=== PATIENT | female | born 1935 | race Caucasian/White ===

== ENCOUNTER 2021-01-30 15:31 | Inpatient (IN) | payer MEDICARE, BC ==
[~2021-01-30] VITALS: Ht 157.5 cm; Wt 83.2 kg
[~2021-01-30 15:31] MED LIST: AMBIEN 5 MG TABL5 M1; ATORVASTATIN CA40 MG; BAYER CHEWABLE81 MG; CALAN80 MG; COQ-10100 MG; COZAAR 50 MG TA50 M2; D-20002000 UNIT; FISH OIL 1,001000 M2; GLUCOTROL5 MG; ISOSORBIDE MONO60 M1; JANUVIA100 MG; LOPRESSOR25; PLAVIX 75 MG TA75 M1; SYNTHROID100 MCG; TRAMADOL 50 MG50 MG; ZANTAC 150MG T150 MG
[2021-01-30 15:41] VITALS: BP 165/79
[2021-01-30 15:46] LABS: URINE BILIRUBIN NEGATIVE (Negative); URINE BLOOD NEGATIVE (Negative); URINE CLARITY CLEAR; URINE COLOR YELLOW; URINE GLUCOSE-RANDOM NEGATIVE (Negative); URINE KETONES NEGATIVE (Negative); URINE LEUKOCYTES NEGATIVE (Negative); URINE NITRITE NEGATIVE (Negative); URINE PROTEIN NEGATIVE (Negative); URINE UROBILINOGEN 0.2 E.U./dl (0.2-1.0)
[2021-01-30] MEDS ORDERED: COZAAR 25 MG TA25 M1 PO (15:55)
[2021-01-30] MEDS ORDERED: HYDROCHLOROTH12.5 M2 PO (15:56)
[2021-01-30] MEDS ORDERED: TRESIBA FL100 UNIT/1 SUBQ (15:59)
[2021-01-30] MEDS ORDERED: PROTONIX40 M2 PO ×2 (16:00→21:51)
[2021-01-30] MEDS ORDERED: ELIQUIS2.5 MG PO (16:00)
[2021-01-30] MEDS ORDERED: NITROSTAT0.4 M1 SUBLING (16:01)
[2021-01-30] MEDS ORDERED: MAGNESIUM250 M1 PO (16:02)
[2021-01-30] MEDS ORDERED: PROBIOTIC1 EAC7 PO (16:02)
[2021-01-30 16:17] LABS: ABSOLUTE EOSINOPHILS 0.1 thou/uL (0.0-0.7); ABSOLUTE LYMPHOCYTES 0.7 thou/uL (0.8-5.3); ABSOLUTE MONOCYTES 0.4 thou/uL (0.0-1.2); ABSOLUTE NEUTROPHILS 4.2 thou/uL (1.6-8.1); BASOPHILS 0.3 %; EOSINOPHILS 1.1 %; HEMOGLOBIN 11.3 gm/dL (12.0-15.0); LYMPHOCYTES 13.3 %; MCH 32.3 pg (26.0-34.0); MCHC 33.3 g/dL (28.0-37.0); MONOCYTES 8.1 %; MPV 7.9 fl. (7.2-11.1); NUCLEATED RBCS 0 /100WBC; PLATELET COUNT* 130 thou/uL (150-400); POLYS 77.2 %; RDW-CV 13.7 % (10.5-14.5); WBC 5.5 thou/uL (4.0-11.0)
[2021-01-30 16:24] LABS: CALCIUM 9.2 mg/dL (8.5-10.1); CREATININE 1.5 mg/dL (0.6-1.3); POTASSIUM 4.1 mmol/L (3.5-5.1)
[2021-01-30 16:27] LABS: APTT 25.4 Seconds (25.0-31.3); INR 1.1; PROTIME 11.7 Seconds (9.20-11.50)
[2021-01-30 16:35] LABS: ALBUMIN 3.6 g/dL (3.4-5.0); TOTAL BILIRUBIN 0.6 mg/dL (<0.1-1.0); TOTAL PROTEIN 7.3 g/dL (6.4-8.2)
[2021-01-30 20:36] VITALS: BP 122/55
[2021-01-30 20:55] VITALS: BP 169/70
[2021-01-30] MEDS ORDERED: D3-501250 MCG PO (21:33)
[2021-01-30] MEDS ORDERED: IMDUR 60 MG TAB60 M1 PO (21:40)
[2021-01-30] MEDS ORDERED: SYNTHROID88 MC1 PO (21:42)
[2021-01-30] MEDS ORDERED: LOSARTAN POTAS100 MG PO (21:44)
[2021-01-30] MEDS ORDERED: KLOR-CON 10 ER10 MEQ PO (21:46)
[2021-01-30] MEDS ORDERED: HYDRALAZINE 2525 MG PO (21:47)
[2021-01-30] MEDS ORDERED: HYDRALAZINE 2525 M1 PO (21:48)
[2021-01-30] MEDS ORDERED: AMBIEN 10 MG TA10 MG PO (21:49)
[2021-01-30] MEDS ORDERED: CALCIUM CARBON500 MG PO (21:54)
[2021-01-30] MEDS ORDERED: ADVIL200 M3 PO (21:57)
[2021-01-31] VITALS (7 sets, daily range): BP systolic 132–187; BP diastolic 59–74
[2021-01-31 11:06] LABS: CALCIUM 9.5 mg/dL (8.5-10.1); CREATININE 1.5 mg/dL (0.6-1.3); MAGNESIUM 1.6 mg/dL (1.8-2.4); POTASSIUM 4.3 mmol/L (3.5-5.1)
[2021-02-01 04:27] VITALS: BP 133/53
[2021-02-01 07:47] LABS: CALCIUM 8.7 mg/dL (8.5-10.1); CREATININE 1.4 mg/dL (0.6-1.3); MAGNESIUM 1.7 mg/dL (1.8-2.4); POTASSIUM 4.3 mmol/L (3.5-5.1)
[2021-02-01 12:10] VITALS: BP 146/53
[2021-02-01 16:15] VITALS: BP 140/60
[2021-02-01 20:00] VITALS: BP 174/82
[2021-02-02 00:11] VITALS: BP 139/61
[2021-02-02 04:40] LABS: CALCIUM 8.9 mg/dL (8.5-10.1); CREATININE 1.4 mg/dL (0.6-1.3); MAGNESIUM 1.8 mg/dL (1.8-2.4); POTASSIUM 4.1 mmol/L (3.5-5.1)
[2021-02-02 04:41] VITALS: BP 143/52
[2021-02-02 08:44] VITALS: BP 180/79
[2021-02-02] MEDS ORDERED: PEPCID20 MG PO (10:14)
[2021-02-02] MEDS ORDERED: TRAZODONE HCL100 MG PO (10:14)
[2021-02-02 13:03] VITALS: BP 187/82
[2021-02-02 13:55] VITALS: BP 187/82
[2021-02-02 14:10] VITALS: BP 187/82
--- NOTE | 2021-02-02 14:37 | EKG ---
[place] [address] ELECTROCARDIOGRAM REPORT Name: BROOKE BURROUGHS Room: [address] ADM IN ..#: [id number] Admission: 01/30/21 Attend Phys: Farnaz Patiño, Discharge: Date of : 35 Date of Service: 01/30/21 1544 Report #: [id number] THIS REPORT FOR: //name// [facility] ED Test Date: 2021-01-30 Test Time: 15:44:20 Pat Name: BROOKE BURROUGHS Department: Room: [facility] Gender: F Application Packager: TIMUR : 1935 Requested By: John Benjamin Order Number: [id number] MD: Israel Garcia Measurements Intervals [place] Rate: 72 P: 22 MN: 150 QRS: -40 QRSD: 104 T: 60 QT: 396 QTc: 434 Interpretive Statements Sinus rhythm Left anterior fascicular block Left ventricular hypertrophy Anterior infarct, old possible Baseline wander in lead(s) II,III,aVF,V2 Compared to ECG 08/07/2017 21:48:55 Left anterior fascicular block now present Sinus bradycardia no longer present Sinus arrhythmia no longer present Myocardial infarct finding still present Electronically Signed On 02-02-2021 14:37:15 CDT by Israel Garcia [email or web address] <ELECTRONICALLY SIGNED> By: Israel Garcia MD, [facility] 02/02/21 1437 1544 1544 Israel Garcia MD, [facility] /EPI
--- NOTE | 2021-02-02 14:42 | EKG ---
[place] [address] ELECTROCARDIOGRAM REPORT Name: DAOPABROOKE Room: [address] IN M.R.#: [id number] Admission: 01/30/21 Attend Phys: Farnaz Patiño, Discharge: Date of : 35 Date of Service: 02/01/21 1006 Report #: [id number] THIS REPORT FOR: //name// [facility] Test Date: 2021-02-01 Test Time: 10:06:01 Pat Name: BROOKE BURROUGHS Department: Room: [address] Gender: F Supervisor White Sugar: VAN : 1935 Requested By: Farnaz Patiño Order Number: [id number] MD: Israel Garcia Measurements Intervals [place] Rate: 56 P: 18 NM: 156 QRS: -35 QRSD: 102 T: 30 QT: 456 QTc: 441 Interpretive Statements Sinus rhythm Left axis deviation Low voltage, precordial leads Abnormal R-wave progression, early transition Consider anterior infarct Compared to ECG 08/07/2017 21:48:55 Left-axis deviation now present Low QRS voltage now present Sinus arrhythmia no longer present Left ventricular hypertrophy no longer present Myocardial infarct finding still present Electronically Signed On 02-02-2021 14:42:48 CDT by Israel Garcia [email or web address] <ELECTRONICALLY SIGNED> By: Israel Garcia MD, [facility] 02/02/21 1442 1006 1006 Israel Garcia MD, [facility] /EPI
== END 2021-02-02 15:08 | disposition home health service (06) | DRG 682 ==
LOC: M.ERS 15:31 → M.TBA-ER 17:21 → M.2W 17:21
PROVIDERS: Emergency Medicine; Internal Medicine; ADMIT Internal Medicine; ATTEND Internal Medicine
DX: N17.0 Acute kidney failure with tubular necrosis (principal); G92 Toxic encephalopathy; E87.1 Hypo-osmolality and hyponatremia; D68.69 Other thrombophilia; K21.00 Gastro-esophageal reflux disease with esophagitis, without bleeding; E11.9 Type 2 diabetes mellitus without complications; I10 Essential (primary) hypertension; E03.9 Hypothyroidism, unspecified; T50.2X5A Adverse effect of carbonic-anhydrase inhibitors, benzothiadiazides and other diuretics, initial encounter; E66.9 Obesity, unspecified; I48.91 Unspecified atrial fibrillation; K74.60 Unspecified cirrhosis of liver; K44.9 Diaphragmatic hernia without obstruction or gangrene; K22.2 Esophageal obstruction; Z20.822 Contact with and (suspected) exposure to COVID-19; Z79.01 Long term (current) use of anticoagulants; Z79.4 Long term (current) use of insulin; Z79.899 Other long term (current) drug therapy; Z88.8 Allergy status to other drugs, medicaments and biological substances; Z85.43 Personal history of malignant neoplasm of ovary; Z95.5 Presence of coronary angioplasty implant and graft; I25.2 Old myocardial infarction; Z68.33 Body mass index [BMI] 33.0-33.9, adult

== ENCOUNTER 2021-02-25 17:20 | Emergency (ER) | payer MEDICARE, BC ==
[~2021-02-25] VITALS: Ht 157.5 cm; Wt 79.4 kg
[~2021-02-25 17:20] MED LIST changes: +ADVIL200 M3 PO; +AMBIEN 10 MG TA10 MG PO; +CALCIUM CARBON500 MG PO; +COZAAR 25 MG TA25 M1 PO; +D3-501250 MCG PO; +ELIQUIS2.5 MG PO; +HYDRALAZINE 2525 M1 PO; +HYDRALAZINE 2525 MG PO; +HYDROCHLOROTH12.5 M2 PO; +IMDUR 60 MG TAB60 M1 PO; +KLOR-CON 10 ER10 MEQ PO; +LOSARTAN POTAS100 MG PO; +MAGNESIUM250 M1 PO; +NITROSTAT0.4 M1 SUBLING; +PEPCID20 MG PO; +PROBIOTIC1 EAC7 PO; +PROTONIX40 M2 PO; +SYNTHROID88 MC1 PO; +TRAZODONE HCL100 MG PO; +TRESIBA FL100 UNIT/1 SUBQ
[2021-02-25] MEDS ORDERED: SODIUM CHLORIDE1 G2 PO (17:37)
[2021-02-25] MEDS ORDERED: AMBIEN 10 MG TA10 MG PO (17:38)
[2021-02-25] MEDS ORDERED: KLOR-CON 1010 MEQ PO (17:40)
[2021-02-25 17:42] LABS: ABSOLUTE EOSINOPHILS 0.1 thou/uL (0.0-0.7); ABSOLUTE MONOCYTES 0.5 thou/uL (0.0-1.2); ABSOLUTE NEUTROPHILS 4.9 thou/uL (1.6-8.1); BASOPHILS 0.3 %; EOSINOPHILS 1.1 %; HEMATOCRIT 35.4 % (37.0-47.0); HEMOGLOBIN 12.1 gm/dL (12.0-15.0); LYMPHOCYTES 15.4 %; MONOCYTES 7.7 %; MPV 7.9 fl. (7.2-11.1); NUCLEATED RBCS 0 /100WBC; PLATELET COUNT* 139 thou/uL (150-400); POLYS 75.5 %; RBC 3.66 mil/uL (4.20-5.00); RDW-CV 13.7 % (10.5-14.5); WBC 6.4 thou/uL (4.0-11.0)
[2021-02-25 17:52] LABS: CALCIUM 9.6 mg/dL (8.5-10.1); CREATININE 1.4 mg/dL (0.6-1.3); POTASSIUM 4.1 mmol/L (3.5-5.1)
[2021-02-25 18:05] LABS: ALBUMIN 3.8 g/dL (3.4-5.0); CK-MB MASS 1.6 ng/mL (<0.5-3.6); INR 1.1; MAGNESIUM 1.9 mg/dL (1.8-2.4); PROTIME 11.4 Seconds (9.20-11.50); TOTAL BILIRUBIN 0.8 mg/dL (<0.1-1.0); TOTAL PROTEIN 7.8 g/dL (6.4-8.2)
[2021-02-25] MEDS ORDERED: MAGIC MOUTHWASH PO (21:27)
[2021-02-25] MEDS ORDERED: CARAFATE 1 GM TA1 GM PO (21:27)
[2021-02-25 21:50] VITALS: BP 185/78
--- NOTE | 2021-02-26 09:19 | EKG ---
[place] [address] ELECTROCARDIOGRAM REPORT Name: BROOKE BURROUGHS Room: [facility]#: [id number] Admission: 02/25/21 Attend Phys: Discharge: 02/25/21 Date of : 35 Date of Service: 02/25/21 1725 Report #: [id number] THIS REPORT FOR: //name// [facility] ED Test Date: 2021-02-25 Test Time: 17:25:15 Pat Name: BROOKE BURROUGHS Department: Room: Gender: Cremator: : 1935 Requested By: Deondre Ballard Order Number: [id number] MD: Shaggy Gallagher Measurements Intervals [place] Rate: 70 P: 28 KS: 146 QRS: -42 QRSD: 103 T: 51 QT: 431 QTc: 466 Interpretive Statements Sinus rhythm Atrial premature complexes Left anterior fascicular block Left ventricular hypertrophy Consider anterior infarct, old Compared to ECG 02/01/2021 10:06:01 Atrial premature complex(es) now present Left anterior fascicular block now present Left ventricular hypertrophy now present Left-axis deviation no longer present Myocardial infarct finding still present Electronically Signed On 02-26-2021 9:19:16 CDT by Shaggy Gallagher [email or web address] <ELECTRONICALLY SIGNED> By: Shaggy Gallagher MD, [facility] 02/26/21 0919 1725 172 Shaggy Gallagher MD, [facility] /EPI
== END 2021-02-25 21:50 | disposition home or self-care (01) ==
LOC: M.ERS 17:20
PROVIDERS: Family Medicine
DX: R07.89 Other chest pain (principal); Z20.822 Contact with and (suspected) exposure to COVID-19; I10 Essential (primary) hypertension; E11.9 Type 2 diabetes mellitus without complications; Z87.01 Personal history of pneumonia (recurrent); Z85.43 Personal history of malignant neoplasm of ovary; Z95.5 Presence of coronary angioplasty implant and graft; Z88.8 Allergy status to other drugs, medicaments and biological substances

== ENCOUNTER 2021-04-15 13:28 | Inpatient (IN) | payer MEDICARE, BC ==
[~2021-04-15] VITALS: Ht 157.5 cm; Wt 77.1 kg
[~2021-04-15 13:28] MED LIST changes: +CARAFATE 1 GM TA1 GM PO; +KLOR-CON 1010 MEQ PO; +MAGIC MOUTHWASH PO; +SODIUM CHLORIDE1 G2 PO
[2021-04-15 13:31] VITALS: BP 182/91
[2021-04-15 14:09] LABS: ABSOLUTE EOSINOPHILS 0.1 thou/uL (0.0-0.7); ABSOLUTE LYMPHOCYTES 0.8 thou/uL (0.8-5.3); ABSOLUTE MONOCYTES 0.4 thou/uL (0.0-1.2); ABSOLUTE NEUTROPHILS 4.4 thou/uL (1.6-8.1); BASOPHILS 0.4 %; EOSINOPHILS 1.3 %; HEMATOCRIT 33.7 % (37.0-47.0); HEMOGLOBIN 11.7 gm/dL (12.0-15.0); LYMPHOCYTES 13.5 %; MCHC 34.7 g/dL (28.0-37.0); MCV 95.1 fL (80.0-100.0); MPV 7.8 fl. (7.2-11.1); NUCLEATED RBCS 0 /100WBC; PLATELET COUNT* 114 thou/uL (150-400); POLYS 77.8 %; RBC 3.54 mil/uL (4.20-5.00); RDW-CV 14.2 % (10.5-14.5); WBC 5.6 thou/uL (4.0-11.0)
[2021-04-15 14:18] LABS: CALCIUM 9.2 mg/dL (8.5-10.1); CREATININE 1.4 mg/dL (0.6-1.3); POTASSIUM 4.2 mmol/L (3.5-5.1)
[2021-04-15 14:31] LABS: ALBUMIN 3.4 g/dL (3.4-5.0); CK-MB MASS 1.2 ng/mL (<0.5-3.6); MAGNESIUM 1.5 mg/dL (1.8-2.4); TOTAL BILIRUBIN 0.7 mg/dL (<0.1-1.0)
--- NOTE | 2021-04-15 16:09 | EKG ---
[place] [address] ELECTROCARDIOGRAM REPORT Name: BROOKE BURROUGHS Room: [place] [address] ADM IN [facility].#: [id number] Admission: 04/15/21 Attend Phys: Elton Ayala Discharge: Date of : 35 Date of Service: 04/15/21 1331 Report #: [id number] THIS REPORT FOR: //name// [facility] ED Test Date: 2021-04-15 Test Time: 13:31:43 Pat Name: BROOKE BURROUGHS Department: Room: [facility] Gender: F Tourist Information Assistant: CATE : 1935 Requested By: Deondre Ballard Order Number: [id number] MD: Richard Garcia Measurements Intervals [place] Rate: 80 P: 19 DC: 172 QRS: -44 QRSD: 96 T: 44 QT: 400 QTc: 462 Interpretive Statements Sinus rhythm artifact noted Left ventricular hypertrophy Inferior infarct, old Anterior infarct, old Compared to ECG 02/25/2021 17:25:15 Atrial premature complex(es) no longer present Myocardial infarct finding still present Electronically Signed On 04-15-2021 16:09:37 CDT by Richard Garcia [email or web address] <ELECTRONICALLY SIGNED> By: Richard Garcia MD, [facility] 04/15/21 1609 1331 133 Richard Garcia MD, [facility] /EPI
[2021-04-15 16:15] VITALS: BP 142/66
[2021-04-15 16:39] VITALS: BP 138/76
[2021-04-15 23:42] VITALS: BP 112/44
[2021-04-16 04:31] LABS: ABSOLUTE EOSINOPHILS 0.1 thou/uL (0.0-0.7); ABSOLUTE LYMPHOCYTES 1.2 thou/uL (0.8-5.3); ABSOLUTE MONOCYTES 0.5 thou/uL (0.0-1.2); ABSOLUTE NEUTROPHILS 3.5 thou/uL (1.6-8.1); BASOPHILS 0.5 %; EOSINOPHILS 1.9 %; HEMATOCRIT 31.1 % (37.0-47.0); HEMOGLOBIN 10.7 gm/dL (12.0-15.0); LYMPHOCYTES 22.8 %; MCH 32.7 pg (26.0-34.0); MCHC 34.5 g/dL (28.0-37.0); MCV 94.9 fL (80.0-100.0); MONOCYTES 9.7 %; NUCLEATED RBCS 0 /100WBC; PLATELET COUNT* 110 thou/uL (150-400); POLYS 65.1 %; RBC 3.27 mil/uL (4.20-5.00); RDW-CV 13.5 % (10.5-14.5); WBC 5.4 thou/uL (4.0-11.0)
[2021-04-16 04:47] LABS: ANION GAP 6 mmol/L (7-16); BUN 21 mg/dL (7-18); CALCIUM 8.9 mg/dL (8.5-10.1); CHLORIDE 101 mmol/L (98-107); CHOLESTEROL 147 mg/dL (<200); CO2 28 mmol/L (21-32); CREATININE 1.5 mg/dL (0.6-1.3); GLUCOSE 122 mg/dL (70-99); HDL CHOLESTEROL 72 mg/dL (>40); LDL CHOLESTEROL 56 mg/dL (<100); POTASSIUM 4.4 mmol/L (3.5-5.1); SODIUM 135 mmol/L (136-145); TRIGLYCERIDE 96 mg/dL (<150); VLDL 19 mg/dL (<40)
[2021-04-16 04:55] LABS: SERUM ASSESSMENT CLEAR
[2021-04-16 05:04] LABS: MAGNESIUM 1.7 mg/dL (1.8-2.4)
[2021-04-16 05:21] VITALS: BP 112/51
[2021-04-16 08:00] VITALS: BP 150/66
[2021-04-16 12:00] VITALS: BP 139/55
[2021-04-16 16:00] VITALS: BP 107/60
[2021-04-17 01:48] VITALS: BP 145/65
[2021-04-17 04:58] VITALS: BP 136/55
[2021-04-17 05:17] LABS: HEMATOCRIT 30.3 % (37.0-47.0); HEMOGLOBIN 10.6 gm/dL (12.0-15.0)
[2021-04-17 08:00] VITALS: BP 147/51
--- NOTE | 2021-04-17 09:30 | NUR ---
CM ASSESSMENT: PT A&O, NORMALLY INDPENDENT WITH ADL'S. PT RESIDES AT HOME WITH SPOUSE. PT USES 0 DME. PT HAS PAST HX OF HH WITH [facility]. PT HAS 0 HX OF SNF. PT PLANS TO RETURN HOME AT D/C, AND DOES NOT ANTICIAPATE AND CM D/C PLANNING NEEDS. CM WILL REMAIN AVAILABLE TO ASSIST AND FOLLOW NEEDED.
--- NOTE | 2021-04-17 10:38 | EKG ---
[place] [address] ELECTROCARDIOGRAM REPORT Name: BROOKE BURROUGHS Room: [address] ADM IN M.R.#: [id number] Admission: 04/15/21 Attend Phys: Elton Ayala Discharge: Date of : 35 Date of Service: 04/17/21 0910 Report #: [id number] THIS REPORT FOR: //name// [facility] Test Date: 2021-04-17 Test Time: 09:10:14 Pat Name: BROOKE BURROUGHS Department: Room: [address] Gender: F Car Pincher: RICARDO : 1935 Requested By: Bibiana Wade Order Number: [id number] MD: Richard Garcia Measurements Intervals [place] Rate: 59 P: 26 GA: 133 QRS: -39 QRSD: 100 T: 29 QT: 451 QTc: 447 Interpretive Statements Sinus rhythm Left ventricular hypertrophy Anterior infarct, old Compared to ECG 04/15/2021 13:31:43 No significant changes Electronically Signed On 04-17-2021 10:37:52 CDT by Richard Garcia [email or web address] <ELECTRONICALLY SIGNED> By: Richard Garcia MD, [facility] 04/17/21 1037 0910 0910 Richard Garcia MD, [facility] /EPI
[2021-04-17 11:59] VITALS: BP 158/66
--- NOTE | 2021-04-17 13:54 | NUR ---
PLAN OF CARE: PHYSICIAN INFORMS OF PLAN FOR THE PT TO POSSIBLY D/C HOME TOMORROW WITH HH. CM SPOKE TO THE PT TO DISUCSS THIS AND SHE DID NOT THINK THAT SHE WOULD NEED HH AT D/C, BUT IF RECOMMENDED BY THE PHYSICIAN SHE IS OPEN TO [facility] SHE HAD NO PREFERENCE. IF PT'S ACCEPTS HH AT D/C FAX HER FACESHEET, H&P, AND D/C HH ORDERS TO [facility]. CM WILL REMAIN AVAILABLE TO ASSIST AND FOLLOW NEEDED. [facility] PHONE: [phone] FAX: [phone]
--- NOTE | 2021-04-17 14:54 | CON ---
[address] [address] CONSULTATION Name: BROOKE BURROUGHS Room: [address] IN M.R.#: [id number] Admission: 04/15/21 Attend Phys: Kary More Discharge: Date of : 35 Report #: [id number] THIS REPORT FOR: cc: Stefanie Renae Linda J. DO Namin, Farid M. MD ~ DOC #: [id number] cc: Stefanie Renae DO, Marc K. Taormina, MD Johnna L. Bodenstab, [facility] DATE OF CONSULTATION: 04/16/2021 Please note at the time of this dictation, the patient was seen and physically examined by myself. REASON FOR CONSULTATION: Chest pain and some dysphagia. HISTORY OF PRESENT ILLNESS: This is an 85-year-old female who presented here today with having going to her eye doctor earlier in the day yesterday noting that her blood pressure was elevated. She states after eating lunch, she developed some discomfort which radiated straight to her back and then it went up into her epigastric area and then up into her chest and down both arms. She took 1 nitroglycerin without relief. She went and laid down for about 20 minutes, did not give her any relief of her discomfort and so EMS was called. She got 2 doses of nitroglycerin there and then took a total of 324 mg of aspirin. Upon arrival, her pain semi went away and then it worsened again and then went away. She states she got a GI cocktail, but really did not help with that. In the last 4 weeks or so, she underwent an EGD with Dr. Arnold who did Botox. She really has not noticed any difference in her swallowing or dysphagia that she has. She does report that she does get full quickly. She had also had an EGD done at [facility] by Dr. Lisa back in 12/2020 that showed a hiatal hernia, Schatzki's ring that she was dilated, otherwise. No varices were noted and she was placed on Protonix twice a day at that particular time. She had a colonoscopy about 5 years ago and no need for any further colonoscopy at this time. She does state she gets ultrasound yearly with Dr. Arnold for her cirrhosis secondary to nonalcoholic fatty liver disease. She denied any nausea, vomiting, fever or chills. She states that her bowels move daily to every other day, soft and formed with no evidence of any bright red blood or melena. On presentation to the ER, it was noted that her troponin was elevated. ALLERGIES: HYDROCORTISONE, AMLODIPINE AND METFORMIN. MEDICATIONS FROM HOME: Include Magic wash, trazodone and famotidine 20 mg at bedtime as needed. She is on Eliquis, probiotic, magnesium, fish oil, Tarceva, vitamin D, ____, Synthroid, losartan, pantoprazole, calcium, hydralazine, [place] [address] CONSULTATION Name: BROOKE BURROUGHS Room: [address]#: [id number] Admission: 04/15/21 Attend Phys: Kary More Discharge: Date of : 35 Report #: [id number] potassium chloride, Lipitor and CoQ10. PAST MEDICAL HISTORY: Significant for hypertension, hyperlipidemia, type 2 diabetes, coronary artery disease, status post NE back in 2016 with a stent, acid reflux and hiatal hernia, history of ovarian cancer, hypothyroidism and pneumonia. PAST SURGICAL HISTORY: Stent. FAMILY HISTORY: Mother had lymphoma. Otherwise, negative. SOCIAL HISTORY: Lives with her . Denies any alcohol, tobacco, or illegal drug use. REVIEW OF SYSTEMS: Twelve point review of systems is essentially negative except what is mentioned in the HPI. PHYSICAL EXAMINATION: VITAL SIGNS: Temperature 36.6, pulse 53, respirations 18, blood pressure 112/51. HEART: Regular rate and rhythm. LUNGS: Clear. ABDOMEN: Soft, positive bowel sounds in all four quadrants with no masses or tenderness noted. LABORATORY DATA: Hemoglobin on admission was 11.7, she is 10.7, white count 5.4, platelets are 110. GFR is 33, BUN is 21 and creatinine is 1.5. Troponin was elevated. LFTs were normal and her lipase was slightly elevated at 446. CT scan of the abdomen and pelvis showed cirrhosis. The pancreas was atrophied and moderate stool throughout the colon. Troponin was elevated at 0.13 on admission. Chest x-ray normal. IMPRESSION: 1. Chest pain. 2. Dysphagia. 3. Early satiety. 4. Anticoagulant therapy, Eliquis, history of stents. 5. Thrombocytopenia. 6. Cirrhosis secondary to nonalcoholic fatty liver disease. 7. Diabetes. 8. Chronic kidney disease. PLAN: 1. Obtain her records from Dr. Arnold on her most recent EGD and whether or [address] [address] CONSULTATION Name: BROOKE BURROUGHS Room: [address] IN M.Nicol.#: [id number] Admission: 04/15/21 Attend Phys: Kary More Discharge: Date of : 35 Report #: [id number] not she had a barium swallow. 2. Once obtaining those records, consider a gastric emptying test. 3. Further recommendations to be made after the above has been noted. Thank you for allowing us to participate in this patient's care. Please do not hesitate to call with any questions regarding this consult. MD KRISTYN Goldberg/GOLDEN/[place]NON <ELECTRONICALLY SIGNED> By: Jossy Mckeon MD 04/17/21 1454 0718 [id number] Mckeon MD /nt
[2021-04-17 15:55] VITALS: BP 155/63
[2021-04-17 20:00] VITALS: BP 167/61
[2021-04-18] VITALS: BP 167/59
[2021-04-18 04:00] VITALS: BP 148/51
--- NOTE | 2021-04-18 04:46 | NUR ---
ASSUMED PT CARE AT APPROX 1930. PT IS AWAKE AND ORIENTED X4. PT IS NOT IN DISTRESS, NO DESATURATIONS NOTED. PT IS TRACING SB ON THE SEISMOGRAPH HELPER. PT DENIES PAIN/DISCOMFORT. NO ACUTE CHANGES THIS SHIFT. CALL LIGHT WITHINR EACH. HOURLY ROUNDING DONE FOR PT SAFETY.
[2021-04-18 08:00] VITALS: BP 177/67
[2021-04-18] MEDS ORDERED: ONDANSETRON HCL4 M2 PO (10:58)
[2021-04-18] MEDS ORDERED: IMDUR 30 MG TAB30 M1 PO (10:58)
[2021-04-18] MEDS ORDERED: COZAAR 50 MG TA50 M1 PO (10:58)
[2021-04-18] MEDS ORDERED: ERYTHROMYCIN250 M2 PO (11:38)
[2021-04-18 12:57] VITALS: BP 177/67
--- NOTE | 2021-04-18 15:37 | NUR ---
ASSUMED PT CARE AT 0730, PT AOX4, C/O GASTRIC DISCOMFORT TREATED W/ PRN PEPCID W/ NO RELIEF. SCRIPTS SENT TO PT PHARMACY FROM GI DR AND DC ORDERS RECEIVED. IV AND ROUTE CDL DRIVER REMOVED. PT DC'D BY DEVIN W/ NURSING STAFF AND ALL PAPERWORK AND PERSONAL BELONGINGS TO 'S VEHICLE AT APPROX 1430
== END 2021-04-18 14:31 | disposition home health service (06) | DRG 303 ==
LOC: M.ERS 13:28 → M.2W 14:28 → M.TBA-ER 14:28 → M.2W 16:21
PROVIDERS: Family Medicine; ADMIT Internal Medicine; ATTEND Internal Medicine
DX: I25.110 Atherosclerotic heart disease of native coronary artery with unstable angina pectoris (principal); E87.1 Hypo-osmolality and hyponatremia; E78.5 Hyperlipidemia, unspecified; R68.81 Early satiety; R13.10 Dysphagia, unspecified; D69.6 Thrombocytopenia, unspecified; E11.22 Type 2 diabetes mellitus with diabetic chronic kidney disease; N18.9 Chronic kidney disease, unspecified; I12.9 Hypertensive chronic kidney disease with stage 1 through stage 4 chronic kidney disease, or unspecified chronic kidney disease; K76.0 Fatty (change of) liver, not elsewhere classified; K74.60 Unspecified cirrhosis of liver; D64.9 Anemia, unspecified; I35.0 Nonrheumatic aortic (valve) stenosis; E11.43 Type 2 diabetes mellitus with diabetic autonomic (poly)neuropathy; K31.84 Gastroparesis; K21.9 Gastro-esophageal reflux disease without esophagitis; E83.42 Hypomagnesemia; I48.0 Paroxysmal atrial fibrillation; Z20.822 Contact with and (suspected) exposure to COVID-19; Z85.43 Personal history of malignant neoplasm of ovary; I25.2 Old myocardial infarction; Z95.5 Presence of coronary angioplasty implant and graft; Z88.8 Allergy status to other drugs, medicaments and biological substances; Z79.01 Long term (current) use of anticoagulants; Z79.4 Long term (current) use of insulin; Z79.899 Other long term (current) drug therapy